=== PATIENT | female | born 1945 | race Caucasian/White ===

== ENCOUNTER → 2016-11-20 | Outpatient (CLI) | payer OTHER ==
[~2016-11-20] MED LIST: BIOTIN1000 MCG PO; BISOPROLOL-HCT1 EAC2 PO; LOSARTAN POTASS50 MG PO
== END | disposition home or self-care (01) ==
LOC: AMB 08:00
DX: L72.0 Epidermal cyst (principal); Z85.3 Personal history of malignant neoplasm of breast; Z92.3 Personal history of irradiation; E06.3 Autoimmune thyroiditis; Z88.5 Allergy status to narcotic agent; Z88.2 Allergy status to sulfonamides
CPT/HCPCS: 88304